=== PATIENT | male | born 1945 | race Caucasian/White ===

== ENCOUNTER 2016-11-13 12:21 | Emergency (ER) | payer MEDICARE, BC ==
[2016-11-13 13:12] VITALS: BP 162/87
--- NOTE | 2016-11-13 13:14 | CR ---
Chest 1V Frontal HISTORY: sob and weak, COMPARISON: 08/23/2011 FINDINGS: Portable chest, 1247 hours. Lungs appear clear and normally aerated. Cardiomediastinal silhouette is within normal limits. No vas cular redistribution or pleural fluid can be seen. Bony structures and soft tissues are unremarkable. IMPRESSION: No acute chest abnormality or significant interval change is identified.
[2016-11-13] MEDS ORDERED: Potassium Chloride 20 MEQ Tab.ER PO ONE (13:19)
--- NOTE | 2016-11-13 14:04 | EDM.PDOC ---
ED HPI GENERAL MEDICAL PROBLEM - General Chief Complaint: Chest Pain Stated Complaint: CHEST PAIN Time Seen by Provider: 11/13/16 12:55 Source of Information: Reports: Patient History Limitations: Reports: No Limitations - History of Present Illness INITIAL COMMENTS - FREE TEXT/NARRATIVE: PT ARRIVED WITH A HSTORY OF 2 EPISODES WHEN HE GOT VERY WEAK. hE DID NOT PASS OUT. hE HAS BEEN VERY FATIQUED. hE DID NOT HAVE CHEST PAIN AND HE WAS NOT DIZZY. hE DOES NOT HAVE HEADACHE. hE HAS A HISTORY OF DEMENTIA. Onset: Other ( TODAY AND THEN 2 DAYS AGO. ) Duration: Minutes:, Other ( PT HAS GENERALIZED FATIQUE. ) Associated Symptoms: Reports: Weakness - Related Data Allergies Allergy/AdvReac Type Severity Reaction Status Date / Time donepezil HCl [From Aricept] AdvReac Nausea and Verified 11/13/16 12:50 Vomiting Home Meds: Home Meds Aspirin [Jd Chewable Aspirin] 81 mg PO DAILY 01/22/14 [History] Gluc/Ricardo-Msm#2/C/D3/Kelvin/Born [Suwmneifvd-Hlsgutwwvyd-GDO] 1 each PO DAILY [History] HCTZ/Triamterene [Maxzide 25-37.5 MG] 25 - 37.5 mg PO DAILY 01/22/14 [History] Melatonin/Pyridoxine HCl (B6) [Melatonin 10 mg Tablet] 1 each PO DAILY 01/22/14 [History] Memantine HCl [Namenda] 5 mg PO DAILY 01/22/14 [History] Multivitamin [Multi-Vitamin Daily] 1 each PO DAILY 01/22/14 [History] LORazepam [Ativan] 0.5 mg PO BEDTIME 05/31/15 [History] buPROPion HCl [Wellbutrin Xl] 150 mg PO DAILY 05/31/15 [History] Rivastigmine [Rivastigmine] 1 patch TOP DAILY 06/02/15 [History] Simvastatin [Simvastatin] 20 mg PO DAILY 06/02/15 [History] Past Medical History HEENT History: Reports: Hard of Hearing, Impaired Vision Cardiovascular History: Reports: Hypertension Musculoskeletal History: Reports: Arthritis Other Musculoskeletal History: DJD Neurological History: Reports: Alzheimers Disease Other Neuro History: medicated for Psychiatric History: Reports: Dementia, Other (See Below) Other Psychiatric History: non-alcoholic amnestic syndrome Hematologic History: Reports: Anemia Oncologic (Cancer) History: Reports: Other (See Below) Other Oncologic History: hx of skin ca - removed - Infectious Disease History Infectious Disease History: Reports: C-Difficile - Past Surgical History Cardiovascular Surgical History: Reports: None GI Surgical History: Reports: Colonoscopy Musculoskeletal Surgical History: Reports: None Social & Family History - Family History Family Medical History: Noncontributory - Tobacco Use Smoking Status *Q: Former Smoker Years of Tobacco use: 8 Used Tobacco, but Quit: No Month Tobacco Last Used: 1966 Tobacco Use Comment: smoke about a cayden a day for 5 years and quit at age 19 Second Hand Smoke Exposure: No - Caffeine Use Caffeine Use: Reports: Coffee - Alcohol Use Days Per Week of Alcohol Use: 5 Number of Drinks Per Day: 2 Total Drinks Per Week: 10 - Recreational Drug Use Recreational Drug Use: No ED ROS GENERAL - Review of Systems Review Of Systems: See Below Constitutional: Reports: Decreased Appetite, Weight Loss, Other (PT STATES HE DOES NOT EAT MUCH/ ) HEENT: Reports: No Symptoms Respiratory: Reports: No Symptoms Endocrine: Reports: No Symptoms GI/Abdominal: Reports: No Symptoms : Reports: No Symptoms Musculoskeletal: Reports: No Symptoms Skin: Reports: No Symptoms Neurological: Reports: No Symptoms Psychiatric: Reports: Anxiety ED EXAM, GENERAL - Physical Exam Exam: See Below Free Text/Narrative:: PT ARRIVED WITH 2 EPISODES OF MARKED WEAKNESS. hE HAS HAD GENERALIZED FATIQUE. Exam Limited By: No Limitations General Appearance: Alert, Anxious Ears: Normal TMs Nose: Normal Inspection Throat/Mouth: Normal Inspection Head: Atraumatic Neck: Normal Inspection Respiratory/Chest: No Respiratory Distress Cardiovascular: Regular Rate, Rhythm, Other (PT DOES HAVE SLIGHT BRADICARDIA IN THE 50S) GI/Abdominal: Soft, Non-Tender (Male) Exam: Normal Inspection Rectal (Males) Exam: Deferred Back Exam: Normal Inspection Neurological: Alert, Oriented, Normal Cognition Psychiatric: Normal Affect Course - Vital Signs Last Recorded V/S: Last Vital Signs Temp 35.2 C 11/13/16 12:56 Pulse 56 L 11/13/16 12:56 Resp 12 11/13/16 12:56 BP 162/87 H 11/13/16 12:56 Pulse Ox 99 11/13/16 12:56 - Orders/Labs/Meds Orders: Active Orders 24 hr Category Date Time Status EKG Documentation Completion [RC] ASDIRECTED Care 11/13/16 12:28 Active LYME AB SCREEN RFLX [REF] Stat Lab 11/13/16 13:23 Received EKG 12 Lead [EK] Routine Ther 11/13/16 12:28 Ordered Labs: Laboratory Tests 11/13/16 11/13/16 11/13/16 Range/Units 12:39 12:39 12:39 WBC 4.9 (4.5-11.0) K/uL RBC 4.67 (4.30-5.90) M/uL Hgb 15.6 H (12.0-15.0) g/dL Hct 41.9 (40.0-54.0) % MCV 90 (80-98) fL MCH 33 H (27-31) pg MCHC 37 H (32-36) % Plt Count 253 (150-400) K/uL Neut % (Auto) 59 (36-66) % Lymph % (Auto) 22 L (24-44) % [place] % (Auto) 14 H (2-6) % Eos % (Auto) 4 (2-4) % Baso % (Auto) 1 (0-1) % Sodium 133 L (140-148) mmol/L Potassium 3.0 L (3.6-5.2) mmol/L Chloride 96 L (100-108) mmol/L Carbon Dioxide 31 (21-32) mmol/L Anion Gap 9.0 (5.0-14.0) mmol/L BUN 9 (7-18) mg/dL Creatinine 1.2 (0.8-1.3) mg/dL Est Cr Clr Drug Dosing 51.00 mL/min Estimated GFR (MDRD) 59 L (>60) Glucose 111 H (74-106) mg/dL Calcium 8.6 (8.5-10.1) mg/dL Total Bilirubin 0.9 (0.2-1.0) mg/dL AST 22 (15-37) U/L ALT 30 (12-78) U/L Alkaline Phosphatase 52 (46-116) U/L Creatine Kinase 88 (39-308) U/L Troponin I < 0.017 (0.000-0.056) ng/mL C-Reactive Protein (0.0-0.3) mg/dL Total Protein 6.4 (6.4-8.2) g/dL Albumin 3.6 (3.4-5.0) g/dL Globulin 2.8 (2.3-3.5) g/dL Albumin/Globulin Ratio 1.3 (1.2-2.2) Urine Color Urine Appearance Urine pH (4.5-8.0) Ur Specific [place] (1.008-1.030) Urine Protein (NEGATIVE) mg/dL Urine Glucose (UA) (NEGATIVE) mg/dL Urine Ketones (NEGATIVE) mg/dL Urine Occult Blood (NEGATIVE) Urine Nitrite (NEGAITVE) Urine Bilirubin (NEGATIVE) Urine Urobilinogen (NORMAL) mg/dL Ur Leukocyte Esterase (NEGATIVE) Urine RBC (0-5) Urine WBC (0-5) Ur Epithelial Cells Amorphous Sediment Urine Bacteria Urine Mucus 11/13/16 11/13/16 Range/Units 13:22 13:23 WBC (4.5-11.0) K/uL RBC (4.30-5.90) M/uL Hgb (12.0-15.0) g/dL Hct (40.0-54.0) % MCV (80-98) fL MCH (27-31) pg MCHC (32-36) % Plt Count (150-400) K/uL Neut % (Auto) (36-66) % Lymph % (Auto) (24-44) % [place] % (Auto) (2-6) % Eos % (Auto) (2-4) % Baso % (Auto) (0-1) % Sodium (140-148) mmol/L Potassium (3.6-5.2) mmol/L Chloride (100-108) mmol/L Carbon Dioxide (21-32) mmol/L Anion Gap (5.0-14.0) mmol/L BUN (7-18) mg/dL Creatinine (0.8-1.3) mg/dL Est Cr Clr Drug Dosing mL/min Estimated GFR (MDRD) (>60) Glucose (74-106) mg/dL Calcium (8.5-10.1) mg/dL Total Bilirubin (0.2-1.0) mg/dL AST (15-37) U/L ALT (12-78) U/L Alkaline Phosphatase (46-116) U/L Creatine Kinase (39-308) U/L Troponin I (0.000-0.056) ng/mL C-Reactive Protein 0.03 (0.0-0.3) mg/dL Total Protein (6.4-8.2) g/dL Albumin (3.4-5.0) g/dL Globulin (2.3-3.5) g/dL Albumin/Globulin Ratio (1.2-2.2) Urine Color Yellow Urine Appearance Clear Urine pH 8.0 (4.5-8.0) Ur Specific [place] 1.010 (1.008-1.030) Urine Protein Negative (NEGATIVE) mg/dL Urine Glucose (UA) Normal (NEGATIVE) mg/dL Urine Ketones Negative (NEGATIVE) mg/dL Urine Occult Blood Negative (NEGATIVE) Urine Nitrite Negative (NEGAITVE) Urine Bilirubin Negative (NEGATIVE) Urine Urobilinogen Normal (NORMAL) mg/dL Ur Leukocyte Esterase Negative (NEGATIVE) Urine RBC 0-5 (0-5) Urine WBC 0-5 (0-5) Ur Epithelial Cells Few Amorphous Sediment Not seen Urine Bacteria Few Urine Mucus Not seen Meds: Medications Discontinued Medications Generic Name Dose Route Start Last Admin Trade Name Amanda PRN Reason Stop Dose Admin Potassium Chloride 20 meq 11/13/16 13:19 11/13/16 14:00 Klor-Con M20 PO 11/13/16 13:20 20 meq ONETIME ONE Administration - Re-Assessments/Exams Free Text/Narrative Re-Assessment/Exam: 11/13/16 14:16 EKG WAS GOOD, K WAS IN THE 3 RANGE. hIS OTHER LABS LOOKED GOOD. Departure - Departure Time of Disposition: 14:04 Disposition: Home, Self-Care 01 Condition: Fair Clinical Impression: Fatigue, Hypokalemia Referrals: Hair Morel MD [Primary Care Provider] - Forms: ED Department Discharge Care Plan Goals: PUSH FLUIDS, HIGH K DIET, KCL 20MEQ 1 TAB DAILY, APPT WITH dR Morel IN 1 WEEK -10 DYS. SEND A COPY OF LBS TO GO WITH THE PT. - My Orders Last 24 Hours: My Active Orders 11/13/16 12:28 EKG Documentation Completion [RC] ASDIRECTED EKG 12 Lead [EK] Routine 11/13/16 13:23 LYME AB SCREEN RFLX [REF] Stat - Assessment/Plan Last 24 Hours: My Active Orders 11/13/16 12:28 EKG Documentation Completion [RC] ASDIRECTED EKG 12 Lead [EK] Routine 11/13/16 13:23 LYME AB SCREEN RFLX [REF] Stat
== END 2016-11-13 14:16 | disposition home or self-care (01) ==
LOC: JP.ED 12:21
DX: R53.83 Other fatigue (principal); E87.6 Hypokalemia; I10 Essential (primary) hypertension; M19.90 Unspecified osteoarthritis, unspecified site; G30.9 Alzheimer's disease, unspecified; F02.80 Dementia in other diseases classified elsewhere, unspecified severity, without behavioral disturbance, psychotic disturbance, mood disturbance, and anxiety; Z86.2 Personal history of diseases of the blood and blood-forming organs and certain disorders involving the immune mechanism; Z85.828 Personal history of other malignant neoplasm of skin; Z87.891 Personal history of nicotine dependence; Z79.899 Other long term (current) drug therapy; Z79.82 Long term (current) use of aspirin; Z88.8 Allergy status to other drugs, medicaments and biological substances
CPT/HCPCS: 36415; 71010; 80053; 81001; 82550; 84484; 85025; 86140; 86618; 93005; 99285; A9270; 86617; 86617-59; 93010; 99283

== ENCOUNTER 2018-09-23 12:05 | Emergency (ER) | payer MEDICARE ==
[2018-09-23 12:51] VITALS: BP 88/48; PULSE 54
[2018-09-23] MEDS ORDERED: Ondansetron 4 MG Tab.DIS PO ONE (12:56)
[2018-09-23] MEDS ORDERED: OLANZapine 5 MG Tab PO ONE (12:58)
--- NOTE | 2018-09-23 13:08 | EDM.PDOC ---
ED HPI GENERAL MEDICAL PROBLEM - General Chief Complaint: General Stated Complaint: cannot sleep Time Seen by Provider: 09/23/18 12:55 Source of Information: Reports: Patient, Family, Old Records, RN History Limitations: Reports: No Limitations - History of Present Illness INITIAL COMMENTS - FREE TEXT/NARRATIVE: 73 yo male presents with his primarily for insomnia. This problem has been worsening over time. He claims he's not slept in 36 hrs., the says that he has napped on and off. They went to the clinic and the wait was too long for them so they came here. He is somewhat more restless than usual per his . No fever. No pain. Occasionally "spits up" not associated with nausea. feels his BP runs around 100-120 systolic. Denies dizziness with standing. Not eating much over the past 1.5 days. Onset: Gradual Duration: Day(s):, Getting Worse Location: Reports: Head Quality: Reports: Other (no pain reported) Severity: Moderate Improves with: Reports: None Worsens with: Reports: Other (time) Context: Reports: Other (mild dementia) Associated Symptoms: Reports: Loss of Appetite (lately), Nausea/Vomiting (no nausea). 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 (see below) (none) - Related Data Allergies Allergy/AdvReac Type Severity Reaction Status Date / Time donepezil HCl [From Aricept] AdvReac Nausea and Verified 11/13/16 12:50 Vomiting Home Meds: Home Meds Aspirin [Jd Chewable Aspirin] 81 mg PO DAILY 01/22/14 [History] Gluc/Ricardo-Msm#2/C/D3/Kelvin/Born [Udzamlrhft-Alhclhrfihd-OTM] 1 each PO DAILY [History] HCTZ/Triamterene [Maxzide 25-37.5 MG] 25 - 37.5 mg PO DAILY 01/22/14 [History] Melatonin/Pyridoxine HCl (B6) [Melatonin Tr 10 mg Tablet] 1 each PO DAILY [History] Memantine HCl [Namenda] 5 mg PO DAILY 01/22/14 [History] Multivitamin [Multi-Vitamin Daily] 1 each PO DAILY 01/22/14 [History] LORazepam [Ativan] 0.5 mg PO BEDTIME 05/31/15 [History] buPROPion HCl [Wellbutrin Xl] 150 mg PO DAILY 05/31/15 [History] Rivastigmine 1 patch TOP DAILY 06/02/15 [History] Simvastatin 20 mg PO DAILY 06/02/15 [History] Past Medical History HEENT History: Reports: Hard of Hearing, Impaired Vision Cardiovascular History: Reports: Hypertension Musculoskeletal History: Reports: Arthritis Other Musculoskeletal History: DJD Neurological History: Reports: Alzheimers Disease Other Neuro History: medicated for Psychiatric History: Reports: Dementia, Other (See Below) Other Psychiatric History: non-alcoholic amnestic syndrome Hematologic History: Reports: Anemia Oncologic (Cancer) History: Reports: Other (See Below) Other Oncologic History: hx of skin ca - removed - Infectious Disease History Infectious Disease History: Reports: C-Difficile - Past Surgical History Cardiovascular Surgical History: Reports: None GI Surgical History: Reports: Colonoscopy Musculoskeletal Surgical History: Reports: None Social & Family History - Family History Family Medical History: Noncontributory - Tobacco Use Smoking Status *Q: Never Smoker - Caffeine Use Caffeine Use: Reports: Coffee ED ROS GENERAL - Review of Systems Review Of Systems: See Below Constitutional: Reports: No Symptoms HEENT: Reports: No Symptoms Respiratory: Reports: No Symptoms Cardiovascular: Reports: No Symptoms Endocrine: Reports: No Symptoms GI/Abdominal: Reports: Decreased Appetite (lately), Vomiting (intermittently). Denies: Abdominal Pain, Black Stool, Bloody Stool, Constipation, Diarrhea, Distension, Flatus, Hematemesis, Hematochezia, Melena, Nausea : Reports: No Symptoms Musculoskeletal: Reports: No Symptoms Skin: Reports: No Symptoms Psychiatric: Reports: Other (insomnia) ED EXAM, GENERAL - Physical Exam Exam: See Below Exam Limited By: No Limitations General Appearance: Alert, WD/WN, No Apparent Distress Eye Exam: Bilateral Eye: Normal Inspection Ears: Normal External Exam, Normal Canal, Hearing Grossly Normal, Normal TMs Ear Exam: Bilateral Ear: Auricle Normal, Canal Normal, TM normal Nose: Normal Inspection, No Blood Throat/Mouth: Normal Inspection, Normal Lips, Normal Oropharynx, Normal Voice, No Airway Compromise Head: Atraumatic, Normocephalic Neck: Normal Inspection Respiratory/Chest: No Respiratory Distress, Lungs Clear, Normal Breath Sounds, No Accessory Muscle Use Cardiovascular: Regular Rate, Rhythm, No Edema GI/Abdominal: Normal Bowel Sounds, Soft, Non-Tender, No Distention Back Exam: Normal Inspection. No: CVA Tenderness (R), CVA Tenderness (L) Extremities: Normal Inspection, Normal Range of Motion, Non-Tender, No Pedal Edema Neurological: Alert, Oriented, CN II-XII Intact, Normal Cognition, No Motor/ Sensory Deficits Psychiatric: Anxious. No: Depressed Mood, Flat Affect, Tearful Skin Exam: Warm, Dry, Intact, Normal Color, No Rash Course - Vital Signs Last Recorded V/S: Last Vital Signs Temp 34.6 C L 09/23/18 12:36 Pulse 54 L 09/23/18 12:36 Resp 12 09/23/18 12:36 BP 88/48 L 09/23/18 12:36 Pulse Ox 98 09/23/18 12:36 - Orders/Labs/Meds Orders: Active Orders 24 hr Category Date Time Status Orthostatic Vital Signs [RC] ASDIRECTED Care 09/23/18 13:06 Active Labs: Laboratory Tests 09/23/18 09/23/18 09/23/18 Range/Units 13:00 13:00 13:15 WBC 7.8 (4.5-11.0) K/uL RBC 4.83 (4.30-5.90) M/uL Hgb 15.7 H (12.0-15.0) g/dL Hct 45.5 (40.0-54.0) % MCV 94 (80-98) fL MCH 33 H (27-31) pg MCHC 35 (32-36) % Plt Count 263 (150-400) K/uL Sodium 142 (140-148) mmol/L Potassium 3.8 (3.6-5.2) mmol/L Chloride 103 (100-108) mmol/L Carbon Dioxide 31 (21-32) mmol/L Anion Gap 8.2 (5.0-14.0) mmol/L BUN 21 H D (7-18) mg/dL Creatinine 1.1 (0.8-1.3) mg/dL Est Cr Clr Drug Dosing 53.35 mL/min Estimated GFR (MDRD) > 60 (>60) Glucose 141 H (74-106) mg/dL Calcium 10.3 H D (8.5-10.1) mg/dL Troponin I < 0.017 (0.000-0.056) ng/mL Urine Color Yellow (YELLOW) Urine Appearance Cloudy A (CLEAR) Urine pH 7.0 (5.0-8.0) Ur Specific [place] 1.020 (1.008-1.030) Urine Protein Negative (NEGATIVE) mg/dL Urine Glucose (UA) Negative (NEGATIVE) mg/dL Urine Ketones 40 H (NEGATIVE) mg/dL Urine Occult Blood Negative (NEGATIVE) Urine Nitrite Negative (NEGATIVE) Urine Bilirubin Small (NEGATIVE) Urine Urobilinogen 0.2 (0.2-1.0) EU/dL Ur Leukocyte Esterase Negative (NEGATIVE) Urine RBC Not seen (0-5) Urine WBC Not seen (0-5) Ur Epithelial Cells Rare Amorphous Sediment Packed Urine Bacteria Not seen Urine Mucus Rare Meds: Medications Discontinued Medications Generic Name Dose Route Start Last Admin Trade Name Freq PRN Reason Stop Dose Admin Olanzapine 5 mg 09/23/18 12:58 09/23/18 13:04 Zyprexa PO 09/23/18 12:59 5 mg ONETIME ONE Administration Ondansetron HCl 4 mg 09/23/18 12:56 09/23/18 13:04 Zofran Odt PO 09/23/18 12:57 4 mg ONETIME ONE Administration Departure - Departure Time of Disposition: 13:40 Disposition: Home, Self-Care 01 Condition: Fair Clinical Impression: Dehydration, mild, Low blood pressure reading Insomnia Qualifiers: Insomnia type: unspecified Qualified Code(s): G47.00 - Insomnia, unspecified - Discharge Information *PRESCRIPTION DRUG MONITORING PROGRAM REVIEWED*: No *COPY OF PRESCRIPTION DRUG MONITORING REPORT IN PATIENT AMAYA: No Referrals: Juanis Fay PA-C [Primary Care Provider] - Forms: ED Department Discharge Additional Instructions: Take Zyprexa 5 mg an hour before bedtime starting tonight. Drink more fluids. Decrease your Triamterene/HCT to every other day. Recheck in the clinic for recheck in the next 3-5 days. - My Orders Last 24 Hours: My Active Orders 09/23/18 13:06 Orthostatic Vital Signs [RC] ASDIRECTED - Assessment/Plan Last 24 Hours: My Active Orders 09/23/18 13:06 Orthostatic Vital Signs [RC] ASDIRECTED
== END 2018-09-23 14:19 | disposition home or self-care (01) ==
LOC: JP.ED 12:05
DX: G47.00 Insomnia, unspecified (principal); E86.0 Dehydration; R03.1 Nonspecific low blood-pressure reading; I10 Essential (primary) hypertension; Z88.8 Allergy status to other drugs, medicaments and biological substances; Z79.82 Long term (current) use of aspirin; Z86.2 Personal history of diseases of the blood and blood-forming organs and certain disorders involving the immune mechanism
CPT/HCPCS: 36415; 80048; 81001; 84484; 85027; 99283; A9270

== ENCOUNTER 2019-06-02 14:48 | Emergency (ER) | payer MEDICARE ==
[2019-06-02 15:09] VITALS: BP 187/74; PULSE 62
--- NOTE | 2019-06-02 16:00 | EDM.PDOC ---
ED HPI GENERAL MEDICAL PROBLEM - General Chief Complaint: Gastrointestinal Problem Stated Complaint: FELL ON FRIDAY FELLING SICK JENNIFER VOMITING Time Seen by Provider: 06/02/19 15:15 Source of Information: Reports: Patient, Family History Limitations: Reports: No Limitations - History of Present Illness INITIAL COMMENTS - FREE TEXT/NARRATIVE: 73-year-old male who fell on Friday sustaining an injury to his scalp, was rechecked at the clinic on Friday and a dressing was applied but no suturing because of the delay in presentation. He was placed on an antibiotic which she has been taking 3 times a day. Onset: Gradual Duration: Day(s): (Nausea and dizziness over the past 2 to 3 days) Associated Symptoms: Reports: No Other Symptoms - Related Data Allergies Allergy/AdvReac Type Severity Reaction Status Date / Time donepezil HCl [From Aricept] AdvReac Nausea and Verified 06/02/19 15:14 Vomiting Home Meds: Home Meds Aspirin [Jd Chewable Aspirin] 81 mg PO DAILY 01/22/14 [History] Glucosam/Chond-MSM 2/C/D3/Kelvin [Bbcnmwxtpb-Hjymkbjfxek-XXS] 1 each PO DAILY [History] HCTZ/Triamterene [Maxzide 25-37.5 MG] 25 - 37.5 mg PO DAILY 01/22/14 [History] Melatonin/Pyridoxine HCl (B6) [Melatonin Tr 10 mg Tablet] 1 each PO DAILY [History] Memantine HCl [Namenda] 5 mg PO DAILY 01/22/14 [History] Multivitamin [Multi-Vitamin Daily] 1 each PO DAILY 01/22/14 [History] LORazepam [Ativan] 0.5 mg PO BEDTIME 05/31/15 [History] buPROPion HCl [Wellbutrin Xl] 150 mg PO DAILY 05/31/15 [History] Rivastigmine 1 patch TOP DAILY 06/02/15 [History] Simvastatin 20 mg PO DAILY 06/02/15 [History] OLANZapine [ZyPREXA] 5 mg PO BEDTIME #10 tab 09/23/18 [Rx] cephALEXin [Cephalexin] 500 mg PO QID 06/02/19 [History] Past Medical History HEENT History: Reports: Hard of Hearing, Impaired Vision Cardiovascular History: Reports: Hypertension Gastrointestinal History: Reports: None Musculoskeletal History: Reports: Arthritis Other Musculoskeletal History: DJD Neurological History: Reports: Alzheimers Disease Other Neuro History: medicated for Psychiatric History: Reports: Dementia, Other (See Below) Other Psychiatric History: non-alcoholic amnestic syndrome Hematologic History: Reports: Anemia Oncologic (Cancer) History: Reports: Other (See Below) Other Oncologic History: hx of skin ca - removed - Infectious Disease History Infectious Disease History: Reports: C-Difficile - Past Surgical History Head Surgeries/Procedures: Reports: None HEENT Surgical History: Reports: None Cardiovascular Surgical History: Reports: None GI Surgical History: Reports: Colonoscopy Neurological Surgical History: Reports: None Musculoskeletal Surgical History: Reports: None Oncologic Surgical History: Reports: None Dermatological Surgical History: Reports: None Social & Family History - Family History Family Medical History: Noncontributory - Tobacco Use Smoking Status *Q: Never Smoker Second Hand Smoke Exposure: No - Caffeine Use Caffeine Use: Reports: Coffee - Alcohol Use Days Per Week of Alcohol Use: 7 Number of Drinks Per Day: 1 Total Drinks Per Week: 7 - Recreational Drug Use Recreational Drug Use: No ED ROS GENERAL - Review of Systems Review Of Systems: See Below Constitutional: Denies: Fever, Chills Respiratory: Denies: Shortness of Breath Cardiovascular: Denies: Chest Pain GI/Abdominal: Reports: Nausea, Vomiting. Denies: Abdominal Pain, Constipation, Diarrhea Neurological: Reports: Confusion (Confusion is chronic due to dementia), Dizziness Psychiatric: Reports: No Symptoms ED EXAM, GENERAL - Physical Exam Exam: See Below Exam Limited By: No Limitations General Appearance: Alert, No Apparent Distress Eye Exam: Bilateral Eye: EOMI, Normal Inspection, PERRL Head: Other (There is a bandage over the right posterior scalp, dry) Neck: Supple, Non-Tender Respiratory/Chest: No Respiratory Distress, Lungs Clear Cardiovascular: Regular Rate, Rhythm GI/Abdominal: Soft, Non-Tender Neurological: Alert, Oriented, No Motor/Sensory Deficits, Other (Romberg is negative, no pronator drift) Psychiatric: Normal Affect, Normal Mood Course - Vital Signs Last Recorded V/S: Last Vital Signs Temp 96.0 F L 06/02/19 15:16 Pulse 62 06/02/19 15:16 Resp 16 06/02/19 15:16 BP 187/74 H 06/02/19 15:16 Pulse Ox 99 06/02/19 15:16 - Re-Assessments/Exams Free Text/Narrative Re-Assessment/Exam: 06/02/19 16:[address] was done without contrast which was negative. Patient was reassured and he will continue his activity as tolerated. Encourage him to take some food with his antibiotic as the nausea he is having is likely due to a medication side effect. He can return anytime if worsening. Departure - Departure Time of Disposition: 16:04 Disposition: Home, Self-Care 01 Clinical Impression: Medication side effect, Dizziness Closed head injury Qualifiers: Encounter type: initial encounter Qualified Code(s): S09.90XA - Unspecified injury of head, initial encounter - Discharge Information Instructions: Head Injury, Adult, [id number] Referrals: PCP,None [Primary Care Provider] - Forms: ED Department Discharge Care Plan Goals: Continue current medications, have some food with your antibiotic. Activity as tolerated and return anytime if worsening or concerns. Sepsis Event Note - Evaluation Sepsis Screening Result: No Definite Risk - Focused Exam Vital Signs: Vital Signs Temp Pulse Resp BP Pulse Ox 06/02/19 15:16 96.0 F L 62 16 187/74 H 99 06/02/19 15:07 96.0 F L 62 16 187/74 H 99 Date Exam was Performed: 06/02/19 Time Exam was Performed: 16:17
--- NOTE | 2019-06-02 16:05 | CRLCT ---
INDICATION: Fall, head injury, dizziness, nausea TECHNIQUE: Head CT without contrast. COMPARISON: MR brain May 26, 2019 FINDINGS: CSF spaces: Within normal limits for age. Brain parenchyma: There are nonspecific low attenuation white matter changes consistent with chronic microvascular disease. No sign of mass, hemorrhage, or midline shift. Skull base and calvarium: The visualized paranasal sinuses and mastoid air cells demonstrate no acute or significant findings. The visualized orbits are grossly unremarkable. No skull fractures. There is intracranial atherosclerosis. IMPRESSION: 1. No acute findings. 2. Nonspecific white matter disease, typical of chronic microvascular disease. Please note that all CT scans at this facility use dose modulation, iterative reconstruction, and/or weight-based dosing when appropriate to reduce radiation dose to as low as reasonably achievable. Dictated by Amber Freeman MD @ Jun 02 2019 4:04PM Signed by Dr. Amber Freeman @ Jun 02 2019 4:04PM
== END 2019-06-02 16:04 | disposition home or self-care (01) ==
LOC: JP.ED 14:48
DX: S09.90XA Unspecified injury of head, initial encounter (principal); R42 Dizziness and giddiness; T50.905A Adverse effect of unspecified drugs, medicaments and biological substances, initial encounter; I10 Essential (primary) hypertension; G30.9 Alzheimer's disease, unspecified; F02.80 Dementia in other diseases classified elsewhere, unspecified severity, without behavioral disturbance, psychotic disturbance, mood disturbance, and anxiety; Z79.899 Other long term (current) drug therapy; M19.90 Unspecified osteoarthritis, unspecified site; Z79.82 Long term (current) use of aspirin; Z88.8 Allergy status to other drugs, medicaments and biological substances; W19.XXXA Unspecified fall, initial encounter
CPT/HCPCS: 70450; 99282; 99284-25

== ENCOUNTER 2021-04-30 08:24 | Emergency (ER) | payer MEDICARE ==
[2021-04-30 08:43] VITALS: BP 197/98; PULSE 66
[2021-04-30] MEDS ORDERED: Ketorolac 30 MG/ML SDV IM ONE (09:02)
== END 2021-04-30 10:03 | disposition home or self-care (01) ==
LOC: JP.ED 08:24
DX: M54.41 Lumbago with sciatica, right side (principal); I10 Essential (primary) hypertension; Z88.8 Allergy status to other drugs, medicaments and biological substances; Z79.82 Long term (current) use of aspirin; Z79.899 Other long term (current) drug therapy
CPT/HCPCS: 96372; 99282; 99283; J1885